=== PATIENT | male | born 1990 | race African-American/Black ===

== ENCOUNTER 2017-04-12 11:49 | Emergency (ER) | payer OTHER ==
[~2017-04-12] VITALS: Ht 182.9 cm; Wt 70.3 kg
[~2017-04-12 11:49] MED LIST: CIPRODEX OTIC7.5 ML OTIC
[2017-04-12 11:52] VITALS: BP 134/77
== END 2017-04-12 12:20 | disposition home or self-care (01) ==
LOC: ER 11:49
DX: L73.9 Follicular disorder, unspecified (principal); F10.99 Alcohol use, unspecified with unspecified alcohol-induced disorder

== ENCOUNTER 2017-10-03 11:45 | Emergency (ER) | payer OTHER ==
[~2017-10-03] VITALS: Ht 182.9 cm; Wt 71.7 kg
[2017-10-03] MEDS ORDERED: IBUPROFEN 600600 M1 PO (13:10)
[2017-10-03] MEDS ORDERED: TIZANIDINE HCL4 MG PO (13:10)
== END 2017-10-03 13:59 | disposition home or self-care (01) ==
LOC: ER 11:45
DX: S29.012A Strain of muscle and tendon of back wall of thorax, initial encounter (principal); S10.93XA Contusion of unspecified part of neck, initial encounter; V89.2XXA Person injured in unspecified motor-vehicle accident, traffic, initial encounter; Y93.89 Activity, other specified; Y92.89 Other specified places as the place of occurrence of the external cause; Y99.8 Other external cause status

== ENCOUNTER 2017-10-19 16:13 | Emergency (ER) | payer OTHER ==
[~2017-10-19] VITALS: Ht 182.9 cm; Wt 70.8 kg
[~2017-10-19 16:13] MED LIST changes: +IBUPROFEN 600600 M1 PO; +TIZANIDINE HCL4 MG PO
[2017-10-19 17:04] VITALS: BP 115/72
== END 2017-10-19 18:03 | disposition home or self-care (01) ==
LOC: ER 16:13
DX: S16.1XXA Strain of muscle, fascia and tendon at neck level, initial encounter (principal); V89.2XXA Person injured in unspecified motor-vehicle accident, traffic, initial encounter; Y93.89 Activity, other specified; Y92.89 Other specified places as the place of occurrence of the external cause; Y99.8 Other external cause status

== ENCOUNTER 2019-06-27 15:50 | Emergency (ER) | payer OTHER ==
[~2019-06-27] VITALS: Ht 175.3 cm; Wt 70.3 kg
[2019-06-27] MEDS ORDERED: MOBIC7.5 MG PO (17:05)
[2019-06-27 17:19] VITALS: BP 132/85
== END 2019-06-27 17:20 | disposition home or self-care (01) ==
LOC: ER 15:50
DX: S16.1XXA Strain of muscle, fascia and tendon at neck level, initial encounter (principal); S39.012A Strain of muscle, fascia and tendon of lower back, initial encounter; S09.8XXA Other specified injuries of head, initial encounter; V43.52XA Car driver injured in collision with other type car in traffic accident, initial encounter; Y92.89 Other specified places as the place of occurrence of the external cause; Y93.89 Activity, other specified; Y99.8 Other external cause status

== ENCOUNTER 2019-11-10 12:04 | Emergency (ER) | payer OTHER ==
[~2019-11-10] VITALS: Ht 182.9 cm; Wt 78.5 kg
[~2019-11-10 12:04] MED LIST changes: +MOBIC7.5 MG PO
[2019-11-10] MEDS ORDERED: VENTOLIN HFA 1818 GM INH (13:11)
[2019-11-10] MEDS ORDERED: ZYRTEC10 M5 PO (13:11)
[2019-11-10 13:39] VITALS: BP 129/75
== END 2019-11-10 13:39 | disposition home or self-care (01) ==
LOC: ER 12:04
DX: J45.909 Unspecified asthma, uncomplicated (principal); Z20.818 Contact with and (suspected) exposure to other bacterial communicable diseases

== ENCOUNTER 2021-08-27 09:13 | Emergency (ER) | payer OTHER ==
[~2021-08-27] VITALS: Ht 182.9 cm; Wt 79.4 kg
[2021-08-27 09:13] VITALS: BP 148/31
[~2021-08-27 09:13] MED LIST changes: +VENTOLIN HFA 1818 GM INH; +ZYRTEC10 M5 PO
[2021-08-27] MEDS ORDERED: IBUPROFEN 600600 M1 PO (11:30)
[2021-08-27] MEDS ORDERED: AMOX TR-K CLV1 EAC4 PO (11:30)
[2021-08-27] MEDS ORDERED: PROAIR HFA8.5 GM INH (11:32)
== END 2021-08-27 11:55 | disposition home or self-care (01) ==
LOC: ER 09:13
DX: J32.9 Chronic sinusitis, unspecified (principal); Z20.822 Contact with and (suspected) exposure to COVID-19; J45.909 Unspecified asthma, uncomplicated; Z79.51 Long term (current) use of inhaled steroids; Z79.899 Other long term (current) drug therapy